=== PATIENT | female | born 2005 | race Caucasian/White ===

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

== ENCOUNTER 2024-05-20 16:53 | Emergency (ER) | payer OTHER, SELFPAY ==
--- NOTE | 2024-05-20 17:45 | ED_ITS ---
Discharge Plan Disposition Patient Disposition: Home, Self-Care Condition: Good Prescriptions Prescriptions: New azithromycin [Zithromax] 250 mg tablet 250 mg PO UD DOSE PK Qty: 6 0RF Rx Instructions: Take two (2) tablets today, then one (1) tablet days #2 thru #5 methylprednisolone 4 mg Tablets,Dose Pack 4 mg PO DIRECTED 6 Days Qty: 21 0RF Rx Instructions: Take 1 pack as directed for 6 days xndgedrynipsdcm-bqqpjcosb-VN [Bromfed DM] 2-30-10 mg/5 mL Syrup 5 ml PO Q6H PRN (Reason: Cough) Qty: 240 0RF No Action levonorgestrel-ethinyl estrad [Aviane] 0.1-20 mg-mcg tablet 1 tab PO DAILY Qty: 84 4RF nitrofurantoin monohyd/m-cryst [Macrobid] 100 mg capsule 100 mg PO BID 7 Days Qty: 14 0RF Rx Instructions: must administer with a meal/food Referrals Follow up/Referrals: Provider,Referral, MD [Primary Care Provider] - See instructions Activity Restrictions/Add. Instructions Additional Instructions/Restrictions: Drink plenty of fluids. Take tylenol or ibuprofen for pain or fever. Take the medications as directed. Follow up with your regular doctor. GO TO THE ER FOR ANY WORSENING SYMPTOMS Clinical Impressions Clinical Impression: Bronchitis Instructions Patient Instructions: DI for Acute Bronchitis Print Language Print Language: [place]ize[place] Discharge ED Provider: Bo Tejada [facility] [place] HPI General Stated complaint: cough Time Seen by Provider: 05/20/24 17:45 Related Data Previous Rx's ?Medication ?Instructions ?Recorded levonorgestrel-ethinyl estradiol 1 tab PO DAILY #84 tabs 01/03/24 0.1 mg-20 mcg tablet (Aviane) azithromycin 250 mg tablet 250 mg PO UD DOSE PK #6 tabs 05/20/24 (Zithromax) bcloallevxtakrx-oxuopiiptnajgwt-KL 5 ml PO Q6H PRN Cough #240 mL 05/20/24 2 mg-30 mg-10 mg/5 mL oral syrup (Bromfed DM) methylprednisolone 4 mg tablets in 4 mg PO DIRECTED 6 days #21 tabs 05/20/24 a dose pack nitrofurantoin 100 mg PO BID 7 days #14 caps 12/31/24 monohydrate/macrocrystals 100 mg capsule (Macrobid) Allergies Allergy/AdvReac Type Severity Reaction Status Date / Time No Known Allergies Allergy Verified 05/01/24 09:59 [facility] Disclaimer: The information contained in this section may have been updated after the patient was seen, as this information can be updated by other users. Medical History Discomfort of vagina BV (bacterial vaginosis) hx of recurrent infections Abnormal ECG Dizziness Rivers disease Anemia due to acute blood loss Surgical History No significant past surgical history Family History Other No significant family history Social History Smoking Status: Current some day smoker alcohol intake: never substance use type: former substance user and marijuana current occupational status: student Travel in the last 8 weeks: None Have you lived/traveled outside [place] in past 30 days?: No Contact w/someone who lives/traveled outside [place] past 30 days?: No Exposure to someone with infectious disease in past 14 days?: No Do you have a fever (greater than 100.4 F or 38 C)?: No Have you tested positive for COVID-19: No Exposed to someone with COVID-19 in past 14 days?: No Do you have a sore throat?: No Do you have a cough?: Yes Do you have any weakness?: No Do you have any diarrhea?: No Are you experiencing any unusual bleeding?: No Do you have any muscle aches/pain?: No Do you have any abdominal pain?: No Are you experiencing loss of taste or smell?: No ROS Obtained: Yes All systems reviewed & no additional complaints except as documented Constitutional Constitutional: Reports chills and Reports fever(s) Eyes Eyes: Denies eye discharge ENT Ears, Nose, Mouth, and Throat: Reports as per HPI Cardiovascular Cardiovascular: Denies chest pain Respiratory Respiratory: Denies chest congestion and Reports cough Gastrointestinal Gastrointestingal: Reports nausea; Denies abdominal pain, constipation, cramping, diarrhea or vomiting Musculoskeletal Musculoskeletal: Denies arthralgias Integumentary/Breasts Skin/Breast: Denies rash Neurologic Neurologic: Denies paresthesias Physical Exam General General appearance: alert and in no apparent distress Eye Eye exam: Present normal appearance, PERRL and EOMI ENT ENT exam: Present mucous membranes moist and normal external ear exam Expanded ENT Exam External ear exam: Present normal external inspection TM/Canal exam: Bilateral TM: erythema and bulging Nose exam: Absent sinus tenderness Nasal speculum exam: Bilateral: normal Mouth exam: Present normal external inspection; Absent drooling Teeth exam: Present normal inspection Throat exam: Present tonsillar erythema and tonsillomegaly Neck Neck exam: Present normal inspection, full ROM and trachea midline; Absent tenderness, lymphadenopathy or thyromegaly Chest Chest inspection: Present normal inspection and symmetric chest wall rise; Ab sent tenderness or rash Respiratory Respiratory exam: Present normal lung sounds bilaterally; Absent respiratory distress, wheezes, stridor or accessory muscle use Cardiovascular Cardiovascular exam: Present regular rate, normal rhythm and normal heart sounds Abdominal Exam Abdominal exam: Present soft; Absent distention, tenderness, guarding, rebound or rigidity Extremities Exam Extremities exam: Present normal inspection, full ROM and normal capillary refill; Absent tenderness or calf tenderness Back Exam Back exam: Present normal inspection and full ROM; Absent tenderness Neurological Exam Neurological exam: Present alert and oriented X3 Psychiatric Psychiatric exam: Present normal affect and normal mood Skin Skin exam: Present warm, dry, intact and normal color Lymphatic Lymphatic Findings: no adenopathy Medical Decision Making Medical Records Medical records reviewed: No I reviewed the patient's medical records. Screening: Per USPSTF and CDC recommendations, given the prevalence of disease in our region, it is our hospital?s policy to screen for HIV and viral Hepatitis for all patients aged 18 and over and those with ongoing risk factors. Rm Inquiry Pt receiving controlled substance: No
[2024-05-20 17:46] VITALS: BP 115/63; PULSE 71; RESP 18; TEMP 37.1; O2SAT 98; BMI 21.7
[2024-05-20 19:00] VITALS: BP 115/63; PULSE 71; RESP 18; TEMP 37.1
== END 2024-05-20 19:06 | disposition home or self-care (01) ==
PROVIDERS: Emergency Provider Nurse Practitioner Family
DX: J40 Bronchitis, not specified as acute or chronic (principal); R50.9 Fever, unspecified; R05.9 Cough, unspecified; R11.0 Nausea
CPT/HCPCS: 99212; G0381

== ENCOUNTER 2024-07-27 09:18 | Outpatient (CLI) | payer OTHER, SELFPAY ==
--- NOTE | 2024-07-27 09:21 | MR_ITS ---
FINAL REPORT TECHNIQUE: Multiplanar MR, without and with gadolinium enhancement CLINICAL HISTORY: DIZZINESS, HEADACHES FINDINGS: Dental hardware causes significant magnetic susceptibility hardware artifact obscuring the inferior frontal lobes. Diffusion sequences show no signal abnormality to indicate acute infarct. No mass, hemorrhage or edema is seen. Ventricles are normal. Major vascular flow voids are intact. Following contrast administration, no mass or abnormal enhancement is seen. IMPRESSION: Unremarkable MR evaluation the brain with contrast Reviewed, Interpreted and Dictated by Jose Leiva MD Transcribed by Yina De Dios Authenticated and [facility]
[2024-07-27] MEDS: SODIUM CHLORIDE 0.9% 10ML SYR (RAD ONLY) 10 ML IV (09:53)
[2024-07-27] MEDS: GADOTERIDOL INJ 20ML SYRINGE 12 ML IV (09:53)
== END 2024-07-27 23:59 | disposition home or self-care (01) ==
LOC: RAD 09:19
PROVIDERS: Visit Provider Nurse Practitioner Family
DX: R42 Dizziness and giddiness (principal); R51.9 Headache, unspecified
CPT/HCPCS: 70553; A9576

== ENCOUNTER 2024-08-09 08:40 | Outpatient (CLI) | payer OTHER, SELFPAY ==
[2024-08-09 08:56] VITALS: BP 115/68; PULSE 78; RESP 18; TEMP 37.5; O2SAT 99
[2024-08-09] MEDS: CEFTRIAXONE SODIUM IV (08:57)
[2024-08-09] MEDS: SODIUM CHLORIDE 0.9% IV (08:57)
[2024-08-09] MEDS: 0.9 % SODIUM CHLORIDE 50 ML 100 ML IV (08:57)
[2024-08-09 09:24] LABS: Basophils # 0.1 K/mm3 (0-0.2); Basophils % 0.7 % (0.1-2.0); Eosinophils # 0.2 K/mm3 (0.0-0.4); Eosinophils % 3.2 % (0.1-12.0); Hematocrit 36.8 % (37.0-47.0); Hemoglobin 12.2 g/dL (12.2-16.2); Lymphocytes # 2.1 K/mm3 (0.7-4.5); Lymphocytes % 29.2 % (10-50); Mean Corpuscular HGB Conc 33.2 g/dL (31.8-35.4); Mean Corpuscular Hemoglobin 29.3 pg (27.0-31.2); Mean Corpuscular Volume 88.5 fl (81-99); Mean Platelet Volume 11.3 fl (7.4-10.4); Monocytes # 0.4 K/mm3 (0.1-1.0); Monocytes % 5.3 % (1.7-9.3); Neutrophils # 4.4 K/mm3 (1.8-7.8); Neutrophils % 61.2 % (37.0-80.0); Platelet Count 306 K/mm3 (142-424); Red Blood Count 4.16 M/mm3 (4.20-5.40); Red Cell Distribution Width 13.2 % (11.5-17.5); White Blood Count 7.1 K/mm3 (4.5-13.0)
[2024-08-09 09:40] VITALS: BP 117/65; PULSE 71; RESP 18; TEMP 37.2; O2SAT 100
[2024-08-09 10:01] LABS: Thyroid Stimulating Hormone 3.53 uIU/mL (0.465-4.68)
[2024-08-09 10:14] LABS: Free T4 (Free Thyroxine) 1.12 ng/dl (0.78-2.19)
== END 2024-08-09 09:40 | disposition home or self-care (01) ==
LOC: INF 08:41
PROVIDERS: Nurse Practitioner; PCP Nurse Practitioner Family; Visit Provider Obstetrics & Gynecology
DX: Z20.2 Contact with and (suspected) exposure to infections with a predominantly sexual mode of transmission (principal); I95.9 Hypotension, unspecified; R42 Dizziness and giddiness
CPT/HCPCS: 84439; 84443; 85025; 96365; J0696

== ENCOUNTER 2024-10-19 13:41 | Outpatient (CLI) | payer OTHER, SELFPAY ==
--- NOTE | 2024-10-19 13:45 | US_ITS ---
PROCEDURE: US TRANSVAGINAL CLINICAL INDICATION: LLQ pain COMPARISON: US US TRANSVAGINAL from 03/30/2022 US US TRANSVAGINAL from 05/05/2023 US US TRANSVAGINAL from 06/29/2023 FINDINGS: Transvaginal sonographic images of the pelvis were obtained. UTERUS: 8.4cm x 5.5cmx 3.5 cm anteverted with a combined endometrial thickness of 4.1mm. An IUD is no longer present within the uterine cavity. LEFT OVARY: 2.9 [id number] with a volume of 6ml. There are several small peripheral follicles. RIGHT OVARY: 2.6 cm x 1.8 cmx1.3cm with a volume of 3.1ml. There are several small peripheral follicles Both ovaries are seen and appear normal. Doppler flow to both ovaries are seen. There is no fluid in the cul-de-sac. IMPRESSION: 1. Anteverted uterus normal in shape and size. The endometrium is thin measuring 4.1 mm. An IUD is no longer seen within the uterine cavity. 2. Both ovaries are seen and appear normal. They both have several small peripheral follicles. 3. No fluid in the cul-de-sac. Dictated by: Margarito Jones MD 10/20/2024 09:04 Margarito Jones MD in OV 10/20/2024 09:04
== END 2024-10-19 23:59 | disposition home or self-care (01) ==
LOC: RAD 13:41
PROVIDERS: PCP Nurse Practitioner Family; Visit Provider Obstetrics & Gynecology
DX: N83.02 Follicular cyst of left ovary (principal); N83.01 Follicular cyst of right ovary
CPT/HCPCS: 76830

== ENCOUNTER 2024-12-05 16:43 | Outpatient (CLI) | payer OTHER, SELFPAY ==
[2024-12-07 03:43] LABS: Neisseria gonorrhoeae, NAA Negative (Negative)
== END 2024-12-05 23:59 | disposition home or self-care (01) ==
LOC: LAB.DROPOF 16:43
PROVIDERS: PCP Obstetrics & Gynecology; Visit Provider Obstetrics & Gynecology
DX: Z11.3 Encounter for screening for infections with a predominantly sexual mode of transmission (principal)
CPT/HCPCS: 87491; 87591; 87798; 87801

== ENCOUNTER 2025-01-11 08:42 | Emergency (ER) | payer OTHER, SELFPAY ==
[2025-01-11 08:44] VITALS: BP 118/75; PULSE 97; RESP 16; TEMP 36.9; O2SAT 98; BMI 22.8
[2025-01-11 09:00] VITALS: BP 118/75; PULSE 95; O2SAT 98
[2025-01-11 09:30] VITALS: BP 101/70; PULSE 87; O2SAT 100
--- NOTE | 2025-01-11 09:56 | ED_ITS ---
Discharge Plan Disposition Patient Disposition: Home, Self-Care Prescriptions Prescriptions: No Action cyanocobalamin (vitamin B-12) 1,000 mcg/mL solution IM WEEKLY Patient Comments: INJECT 1 ML INTRAMUSCULARLY ONCE A WEEK FOR 30 DAYS doxycycline hyclate 100 mg tablet 100 mg PO BID 7 Days Qty: 14 0RF drospirenone-ethinyl estradiol [Loryna (28)] 3-0.02 mg tablet See Rx Instructions .ROUTE .COMPLEX Qty: 84 3RF Dose Instruction: Take 1 tablet by mouth once daily Rx Instructions: Take 1 tablet by mouth once daily Referrals Follow up/Referrals: Blanca Boyer APRN [Primary Care Provider, Medical] - See instructions Clinical Impressions Clinical Impression: Paronychia Stand Alone Forms Stand Alone Forms: Work/School Release Instructions Patient Instructions: DI for Paronychia Print Language Print Language: Welsh Discharge ED Provider: Beto Cardoso General Adult HPI General Chief complaint: Skin/Abscess/Foreign Body Stated complaint: Infection middle finger left hand, fever Time Seen by Provider: 01/11/25 09:23 Mode of Arrival: Family Vehicle Source of Information: Patient Description of Symptoms (Recalled from ER Triage Doc. by RN): Pt c/o infection to her nailbed on middle finger of left hand. States she was at pcp office yeaterday and give and antibiotic and told to use epsom salt. She said she is taking Ibuprofen every 4 hr but it has not helped well. States she has been f eeling feverish and pcp told her to come to the ER for eval. History of Present Illness HPI narrative: This patient presents to the emergency department with 1 week of swelling and pain of the middle finger of the right hand. She initially cut her finger 2 weeks ago while reaching behind a car seat, yesterday she presented to an urgent care and was prescribed Keflex 3 times daily for 7 days. She is taking this medication as prescribed however symptoms are improving. She has a visible purulent fluid collection behind the nail. She has no other complaints at this time, no systemic symptoms including no fever, no chills, no night sweats. Related Data Home Medications ?Medication ?Instructions ?Recorded ?Confirmed cyanocobalamin (vitamin B-12) mcg IM WEEKLY 12/05/24 0 12/05/24 1,000 mcg/mL injection solution Previous Rx's ?Medication ?Instructions ?Recorded drospirenone 3 mg-ethinyl See Rx Instructions .Route 0 11/15/24 estradiol 0.02 mg tablet (Loryna .COMPLEX #84 tabs (28)) doxycycline hyclate 100 mg tablet 100 mg PO BID 7 days #14 tabs 12/05/24 Allergies Allergy/AdvReac Type Severity Reaction Status Date / Time No Known Allergies Allergy Verified 12/05/24 13:37 [facility] Disclaimer: The information contained in this section may have been updated after the patient was seen, as this information can be updated by other users. Medical History LLQ pain Vaginal discharge Possible exposure to STD Abnormal uterine bleeding Discomfort of vagina BV (bacterial vaginosis) hx of recurrent infections Abnormal ECG Dizziness Rivers disease Anemia due to acute blood loss Surgical History No significant past surgical history Family History Other No significant family history Social History Smoking Status: Current every day smoker alcohol intake: never substance use type: former substance user and marijuana current occupational status: student Travel in the last 8 weeks?: None Have you lived/traveled outside [place] in past 30 days?: No Contact w/someone who lives/traveled outside [place] past 30 days?: No Exposure to someone with infectious disease in past 14 days?: No Do you have a fever (greater than 100.4 F or 38 C)?: No Have you tested positive for COVID-19?: No Exposed to someone with COVID-19 in past 14 days?: No Do you have a sore throat?: No Do you have a cough?: No Do you have any weakness?: No Do you have any diarrhea?: No Are you experiencing any unusual bleeding?: No Do you have any muscle aches/pain?: No Do you have any abdominal pain?: No Are you experiencing loss of taste or smell?: No Other Medical History Have you received the Flu Vaccine for this season: No Have you received the Pneumonia Vaccine: No ROS Obtained: Yes All systems reviewed & no additional complaints except as documented Physical Exam General General appearance: alert and in no apparent distress Head Head exam: atraumatic and normocephalic Eye Eye exam: Present normal appearance and PERRL ENT ENT exam: Present normal exam Neck Neck exam: Present normal inspection Chest Chest inspection: Present normal inspection Respiratory Respiratory exam: Absent respiratory distress Cardiovascular Cardiovascular exam: Present regular rate and normal rhythm Extremities Exam Extremities exam: Present normal inspection Neurological Exam Neurological exam: Present alert and oriented X3 Psychiatric Psychiatric exam: Present normal affect Skin Skin exam: Present warm and dry Medical Decision Making Medical Records Screening: Per USPSTF and CDC recommendations, given the prevalence of disease in our region, it is our hospital?s policy to screen for HIV and viral Hepatitis for all patients aged 18 and over and those with ongoing risk factors. Rm Inquiry Pt receiving controlled substance: No Rm was queried for this patient: No Vital Signs: 01/11/25 08:44 01/11/25 09:00 01/11/25 09:30 Temperature 98.4 F Temperature Source Oral Pulse Rate 95 H 87 Pulse Rate [Right] 97 H Respiratory Rate 16 Blood Pressure 118/75 101/70 L Blood Pressure [Right Arm] 118/75 Blood Pressure Mean [Right Arm] 89 Blood Pressure Source Blood Pressure Source [Right Arm] Automatic Cuff 02 Sat by Pulse Oximetry 98 98 100 Oxygen Delivery Method Room Air 01/11/25 10:06 Temperature 98.4 F Temperature Source Oral Pulse Rate 85 Pulse Rate [Right] Respiratory Rate 20 Blood Pressure 108/78 L Blood Pressure [Right Arm] Blood Pressure Mean [Right Arm] Blood Pressure Source Automatic Cuff Blood Pressure Source [Right Arm] 02 Sat by Pulse Oximetry Oxygen Delivery Method Room Air Medical Decision Narrative: This patient presents to the emergency department with soft tissue pain and swelling of the finger. Differential diagnosis includes felon, paronychia, pulpitis, cellulitis. After careful physical exam I think is most likely the patient is suffering from paronychia. A single bur hole was created via cautery producing immediate relief in the patient's discomfort. The patient reported that she was on day 2 of a 7-day antibiotic course, felt this would be adequate to cover any worsening cellulitis. I provided the patient with careful return precautions and discharged her to home with plans to follow-up with her primary care provider. Critical Care Critical Care Time Critical Care Time: No
[2025-01-11 10:06] VITALS: BP 108/78; PULSE 85; RESP 20; TEMP 36.9; O2SAT 97
== END 2025-01-11 10:16 | disposition home or self-care (01) ==
PROVIDERS: Emergency Provider Student in an Organized Health Care Education/Training Program; PCP Nurse Practitioner Family
DX: L03.012 Cellulitis of left finger (principal)
CPT/HCPCS: 99283

== ENCOUNTER 2025-01-15 13:16 | Outpatient (CLI) | payer OTHER, SELFPAY | END 2025-01-15 23:59 | disposition home or self-care (01) | LOC: LAB.DROPOF 01-16 13:28 | PROVIDERS: PCP Nurse Practitioner; Visit Provider Nurse Practitioner | DX: R35.0 Frequency of micturition (principal) | CPT/HCPCS: 87086 ==

== ENCOUNTER 2025-03-28 10:04 | Outpatient (CLI) | payer OTHER, SELFPAY | END 2025-03-28 23:59 | LOC: LAB.DROPOF 04-01 10:04 | PROVIDERS: PCP Internal Medicine Adolescent Medicine; Visit Provider Student in an Organized Health Care Education/Training Program | DX: N39.0 Urinary tract infection, site not specified (principal) | CPT/HCPCS: 87086; 87088; 87186 ==

== ENCOUNTER 2025-04-05 10:31 | Outpatient (CLI) | payer OTHER, SELFPAY ==
--- NOTE | 2025-04-05 10:15 | US_ITS ---
PROCEDURE: US TRANSVAGINAL CLINICAL INDICATION: rule out retained products COMPARISON: US US TRANSVAGINAL from 10/19/2024 FINDINGS: Transvaginal sonographic images of the pelvis were obtained. UTERUS: 8.9cm x 5cmx 4cm anteverted with a combined endometrial thickness of 5.6mm. There appears to be enhanced myometrial vascularity post miscarriage. There does not appear to be retained products of conception. LEFT OVARY: 2.6 cmx 1.6 cmx1.7cm with a volume of 3.7ml. RIGHT OVARY: 2.9 cmx 2.6 cmx2.0cm with a volume of 7.9ml. There are several small follicles within the right ovary. Both ovaries are seen and appear normal. Doppler flow to both ovaries are seen. There is a small amount of fluid in the cul-de-sac. IMPRESSION: 1. Anteverted uterus normal in shape and size. The endometrium is thin measuring 5.6 mm. 2. There appears to be enhanced myometrial vascularity within the posterior myometrium. This could be mistaken for an AVM and most commonly occurs post miscarriage/. 3. Both ovaries are seen and appear normal. 4. There is a small amount of fluid within the cul-de-sac. Dictated by: Margarito Jones MD 04/05/2025 13:01 Margarito Jones MD in [place] 04/05/2025 13:01
== END 2025-04-05 23:59 | disposition home or self-care (01) ==
LOC: RAD 10:32
PROVIDERS: PCP Internal Medicine Adolescent Medicine; Visit Provider Nurse Practitioner Obstetrics & Gynecology
DX: N85.4 Malposition of uterus (principal); R93.89 Abnormal findings on diagnostic imaging of other specified body structures; N93.9 Abnormal uterine and vaginal bleeding, unspecified; N94.89 Other specified conditions associated with female genital organs and menstrual cycle
CPT/HCPCS: 76830

== ENCOUNTER 2025-04-17 14:37 | Outpatient (CLI) | payer OTHER, SELFPAY ==
--- NOTE | 2025-04-17 15:00 | US_ITS ---
PROCEDURE: US TRANSVAGINAL CLINICAL INDICATION: increased vascularity in uterine muscles COMPARISON: US US TRANSVAGINAL from 04/05/2025 FINDINGS: Transvaginal sonographic images of the pelvis were obtained. UTERUS: 9.1cm x 3.4cm with a combined endometrial thickness of 7mm. There continues to be increased vascularity, likely enhanced myometrial vascularity in the posterior myometrium inferior to the endometrium. This is best seen on the transverse view near the fundus. The maximum systolic velocity is 24.8 centimeters/second. LEFT OVARY: 2.7 cmx1.4cmx1.6cm with a volume of 3.2ml. There are several small follicles. RIGHT OVARY: 3.0cmx 1.9x2.3cm with a volume of 7ml. Both ovaries are seen and appear normal. Doppler flow to both ovaries are seen. There is no fluid in the cul-de-sac. IMPRESSION: 1. Anteverted, slightly enlarged uterus. The endometrium is thin measuring 7 mm. 2. There continues to be an area of enhanced myometrial vascularity inferior to the endometrium. The maximum systolic velocity is 24.4 cm/second. This is best seen on the transverse view. See images 13-19. 3. Both ovaries are seen and appear normal. 4. No fluid in the cul-de-sac. 5. Patient has stated that she is no longer bleeding vaginally. 6. Continue with biweekly transvaginal ultrasounds until complete resolution of this EMV. Dictated by: Margarito Jones MD 04/17/2025 16:47 Margarito Jones MD in [place] 04/17/2025 16:47
== END 2025-04-17 23:59 | disposition home or self-care (01) ==
LOC: RAD 14:38
PROVIDERS: PCP Internal Medicine Adolescent Medicine; Visit Provider Nurse Practitioner Obstetrics & Gynecology
DX: N85.4 Malposition of uterus (principal); N85.2 Hypertrophy of uterus; N93.9 Abnormal uterine and vaginal bleeding, unspecified; R10.32 Left lower quadrant pain; R09.89 Other specified symptoms and signs involving the circulatory and respiratory systems
CPT/HCPCS: 36415; 76830; 84702

== ENCOUNTER 2025-05-06 11:01 | Outpatient (CLI) | payer OTHER, SELFPAY ==
--- NOTE | 2025-05-06 11:00 | US_ITS ---
PROCEDURE: US TRANSVAGINAL CLINICAL INDICATION: myometrial vascularity COMPARISON: US US TRANSVAGINAL from 10/19/2024 US US TRANSVAGINAL from 04/05/2025 US US TRANSVAGINAL from 04/17/2025 FINDINGS: Transvaginal sonographic images of the pelvis were obtained. UTERUS: 8.6 cm x 5.5 cmx 3.3cm anteverted with a combined endometrial thickness of 6.6 mm. There continues to be posterior enhanced myometrial vascularity with turbulent flow. The peak velocity is 20.9-24.6 Cm/second. LEFT OVARY: 2.7 cmx1.6x1.5cm with a volume of 3.3ml. There are several small follicles. RIGHT OVARY: 3.5x 1.9 cmx1.2cm with a volume of 4ml. There are several small peripheral follicles. Both ovaries are seen and appear normal. Doppler flow to both ovaries are seen. There is no fluid in the cul-de-sac. IMPRESSION: 1. Anteverted uterus normal in shape and size. The endometrium measures 6.6 mm. 2. There continues to be enhanced myometrial vascularity in the inferior aspect of the myometrium. Similar in appearance to her last ultrasound. 3. Both ovaries are seen and appear normal. They each have several small follicles. 4. No fluid in the cul-de-sac. 5. Continue with biweekly ultrasound to see the resolution of the enhancement meet really vascularity. Dictated by: Margarito Jones MD 05/06/2025 16:51 Margarito Jones MD in [place] 05/06/2025 16:51
== END 2025-05-06 23:59 | disposition home or self-care (01) ==
LOC: RAD 11:02
PROVIDERS: PCP Internal Medicine Adolescent Medicine; Visit Provider Nurse Practitioner Obstetrics & Gynecology
DX: N85.4 Malposition of uterus (principal); N83.02 Follicular cyst of left ovary; N83.01 Follicular cyst of right ovary; R93.89 Abnormal findings on diagnostic imaging of other specified body structures; R09.89 Other specified symptoms and signs involving the circulatory and respiratory systems
CPT/HCPCS: 76830

== ENCOUNTER 2025-05-20 11:03 | Outpatient (CLI) | payer OTHER, SELFPAY ==
--- OUTSIDE RECORDS SUMMARY | 2025-05-10 09:15 | XMS_ITS | Encounter Summary ---
Author Organization Healthcare Address [address] [place] [address] Care Team Providers Care Network Program Manager Name Role Phone Beltran Payton MD Primary Care Provider [phone] Reason for Visit * Reason Comments Office Visit Encounter Details Date Type Department Care Team ([facility] Contact Info) Description 05/10/2025 9:15 AM EST Office Visit Medical Office Building Obstetrics and Gynecology [address] [facility] [address] [facility] [address], [address] [place] [address] Ev Lugo MD [address] [facility] [place] [address] AVM (arteriovenous malformation) (Primary Dx); Healthcare maintenance Social History Tobacco Use Types Packs/Day Years Used Date Smoking Tobacco: Never Passive Smoke Exposure: Never Smokeless Tobacco: Current Tobacco Cessation:Ready to Q uit: No; Counseling Given: No Alcohol Use Standard Drinks/Week Comments Never 0 (1 standard drink = 0.6 oz pur e alcohol) PHQ-2 Answer Date Recorded Patient Health Questionnaire-2 Score 0 05/10/2025 PHQ-9 Answer Date Recorded Patient Health Questionnaire-9 Score 7 05/10/2025 Comments No Sex and Gender Information Value Date Recorded Sex Assigned at Not on file Legal Sex Female 10:57 AM EST Gender Identity Not on file Sexual Orientation Not on file documented as of this encounter Last Filed Vital Signs Vital Sign Reading Time Taken Comments Blood Pressure 118/78 05/10/2025 9:29 AM EST Pulse 74 05/10/2025 9:29 AM EST Temperature - - Respiratory Rate 20 05/10/2025 9:29 AM EST Oxygen Saturation 98% 05/10/2025 9:29 AM EST Inhaled Oxygen Concentration - - Weight 64.8 kg (142 lb 13.7 oz) 05/10/2025 9:29 AM EST Height 167.6 cm (5' 6 ) 05/10/2025 9:29 AM EST Body Mass Index 23.06 05/10/2025 9:29 AM EST documented in this encounter Functional Status * BP Answer Date of Assessment Author 118/78 05/10/2025 9:29 AM EST Faustina Dominguez, RN * Pulse Answer Date of Assessment Author 74 05/10/2025 9:29 AM EST Faustina Dominguez, RN * Resp Answer Date of Assessment Author 20 05/10/2025 9:29 AM Faustina White, RN * SpO2 Answer Date of Assessment Author 98 05/10/2025 9:29 AM EST Faustina Dominguez, RN * Height Answer Date of Assessment Author 66 05/10/2025 9:29 AM EST Faustina Dominguez, RN * Weight Answer Date of Assessment Author 2285.73 05/10/2025 9:29 AM EST Faustina Dominguez, RN * BMI (Calculated) Answer Date of Assessment Author 23.1 05/10/2025 9:29 AM EST Faustina Dominguez, RN * Percent Excess Weight Loss Answer Date of Assessment Author 0 05/10/2025 9:29 AM Faustina White, RN * Total Weight Change Percent Answer Date of Assessment Author 2222 05/10/2025 9:29 AM Faustina White, RN * Weight Change Since Preop Answer Date of Assessment Author 64.79 05/10/2025 9:29 AM Faustina White, RN * Initial Excess Weight Answer Date of Assessment Author -58.97 05/10/2025 9:29 AM Faustina White, RN * IBW in lbs (Bariatric) Answer Date of Assessment Author 130 05/10/2025 9:29 AM Faustina White, RN * Weight Change Since Last Visit Answer Date of Assessment Author 64.79 05/10/2025 9:29 AM Faustina White, RN * IBW in kg (Bariatric) Answer Date of Assessment Author 58.97 05/10/2025 9:29 AM Faustina White, RN * Percent of IBW Answer Date of Assessment Author 3,876.09 05/10/2025 9:29 AM Faustina White, RN * EBW (kg) Answer Date of Assessment Author 2,284.06 05/10/2025 9:29 AM Faustina White, RN * EBW (lbs) Answer Date of Assessment Author 2,277.61 05/10/2025 9:29 AM Faustina White, RN * Weight Change 24 hrs Answer Date of Assessment Author 64.8 05/10/2025 9:29 AM Faustina White, RN * Depression Screening Question Answer Date of Assessment Author Will the patient answer the depression risk questions? Yes 05/10/2025 9:32 AM Lea White, RN * BSA (Calculated - sq m) Answer Date of Assessment Author 1.74 05/10/2025 9:29 AM Faustina White, RN * BMI (Calculated) Answer Date of Assessment Author 23.07 05/10/2025 9:29 AM Faustina White, RN * BP Location Answer Date of Assessment Author Left arm 05/10/2025 9:29 AM Faustina White, RN * IBW/kg (Calculated) Male Answer Date of Assessment Author 63.8 05/10/2025 9:29 AM Faustina White, RN * IBW/kg (Calculated) Female Answer Date of Assessment Author 59.3 05/10/2025 9:29 AM Faustina White, RN * Restart Vitals Timer Answer Date of Assessment Author Yes 05/10/2025 9:29 AM Faustina White, RN * IBW/kg (Calculated) Answer Date of Assessment Author 59.3 05/10/2025 9:29 AM Faustina White, RN * Over the past 2 weeks, how often have you been bothered by any of the following problems? Question Answer Date of Assessment Author Little interest or pleasure in doing things Not at all 05/10/2025 9:32 AM Yvonne White, RN Feeling down, depressed, or hopeless Not at all 05/10/2025 9:32 AM Yvonne White RN Patient Health Questionnaire -2 Score 0 05/10/2025 9:32 AM Yvonne White RN * Over the past 2 weeks, how often have you been bothered by any of the following problems? Question Answer Date of Assessment Author Trouble falling or staying asleep, or sleeping too much Nearly every day 05/10/2025 9:32 AM Yvonne White RN Feeling tired or having little energy Nearly every day 05/10/2025 9:32 AM Yvonne White RN Poor appetite or overeating Not at all 05/10/2025 9:32 AM Yvonne White RN Feeling bad about yourself - or that you are a failure or have let yourself or your family down Not at all 05/10/2025 9:32 AM Yvonne White RN Trouble concentrating on things, such as reading the newspaper or watching television Several days 05/10/2025 9:32 AM Yvonne White RN Moving or speaking so slowly that other people could have noticed. Or the opposite - being so fidgety or restless that you have been moving around a lot more than usual Not at all 05/10/2025 9:32 AM Yvonne White RN Thoughts that you would be better off or hurting yourself in some way Not at all 05/10/2025 9:32 AM Yvonne White RN Patient Health Questionnaire-9 Score 7 05/10/2025 9:32 AM Yvonne White , BOZENA * How difficult have these problems made it for you to do your work, take care of things at home, or get along with other people? Answer Date of Assessment Author Not difficult at all 05/10/2025 9:32 AM Yvonne Guy RN * Weight in (lb) to have BMI = 25 Answer Date of Assessment Author 154.6 05/10/2025 9:29 AM Faustina White RN * BMI (Calculated) Answer Date of Assessment Author 23.1 05/10/2025 9:29 AM Faustina White RN * Percent Excess Weight Loss Answer Date of Assessment Author 0 05/10/2025 9:29 AM Faustina White, BOZENA * Weight Change Since Preop Answer Date of Assessment Author 64.8 05/10/2025 9:29 AM Faustina White, RN * Initial Excess Weight Answer Date of Assessment Author -58.97 05/10/2025 9:29 AM Faustina White, RN * IBW in kg (Bariatric) Answer Date of Assessment Author 58.97 05/10/2025 9:29 AM Faustina White, RN * IBW in lb (Bariatric) Answer Date of Assessment Author 130 05/10/2025 9:29 AM Faustina White, RN * Weight Change Since Last Visit Answer Date of Assessment Author 64.8 05/10/2025 9:29 AM Faustina White, RN * Percent of IBW Answer Date of Assessment Author 109.89 05/10/2025 9:29 AM Faustina White, RN * EBW (kg) Answer Date of Assessment Author 5.82 05/10/2025 9:29 AM Faustina White, RN * EBW (lb) Answer Date of Assessment Author 12.86 05/10/2025 9:29 AM Faustina White, RN * Difference in Weight Since Last Visit Answer Date of Assessment Author 64.8 05/10/2025 9:29 AM Faustina White, RN * IBW/kg (Calculated) Answer Date of Assessment Author 59.3 05/10/2025 9:29 AM Faustina White, RN * Adult Low Range Vt 6mL/kg Answer Date of Assessment Author 355.8 05/10/2025 9:29 AM Faustina White, RN * Adult Moderate Range Vt 8mL/kg Answer Date of Assessment Author 474.4 05/10/2025 9:29 AM Faustina White, RN * Adult High Range Vt 10mL/kg Answer Date of Assessment Author 593 05/10/2025 9:29 AM Faustina White, RN * Pain Score Answer Date of Assessment Author 0 05/10/2025 11:12 AM Yvonne White, BOZENA * Patient Position Answer Date of Assessment Author Sitting 05/10/2025 9:29 AM Faustina White, RN * Pain Screening/Additional Assessments Question Answer Date of Assessment Author Pain Screening/Assessments Pain Screening 05/10/2025 1 1:12 AM Yvonne White, BOZENA * Pain Screening Answer Date of Assessment Author 0-10 05/10/2025 11:12 AM Yvonne White RN * BP Answer Date of Assessment Author 118/78 05/10/2025 9:29 AM Faustina White, RN * Pulse Answer Date of Assessment Author 74 05/10/2025 9:29 AM Faustina White, RN * Resp Answer Date of Assessment Author 20 05/10/2025 9:29 AM Faustina White, RN * SpO2 Answer Date of Assessment Author 98 05/10/2025 9:29 AM Faustina White, RN * Height Answer Date of Assessment Author 66 05/10/2025 9:29 AM Faustina White, RN * Weight Answer Date of Assessment Author 2285.73 05/10/2025 9:29 AM Faustina White, RN * BSA (Calculated - sq m) Answer Date of Assessment Author 1.74 05/10/2025 9:29 AM Faustina White, RN * BMI (Calculated) Answer Date of Assessment Author 23.07 05/10/2025 9:29 AM Faustina White, RN * BP Location Answer Date of Assessment Author Left arm 05/10/2025 9:29 AM Faustina White, RN * Restart Vitals Timer Answer Date of Assessment Author Yes 05/10/2025 9:29 AM Faustina White, RN * Over the past 2 weeks, how often have you been bothered by any of the following problems? Question Answer Date of Assessment Author Little interest or pleasure in doing things Not at all 05/10/2025 9:32 AM Yvonne White RN Feeling down, depressed, or hopeless Not at all 05/10/2025 9:32 AM Yvonne White, BOZENA Patient Health Questionnaire -2 Score 0 05/10/2025 9:32 AM Yvonne White, RN * Over the past 2 weeks, how often have you been bothered by any of the following problems? Question Answer Date of Assessment Author Trouble falling or staying asleep, or sleeping too much Nearly every day 05/10/2025 9:32 AM Yvonne White RN Feeling tired or having little energy Nearly every day 05/10/2025 9:32 AM Yvonne White RN Poor appetite or overeating Not at all 05/10/2025 9:32 AM Yvonne White RN Feeling bad about yourself - or that you are a failure or have let yourself or your family down Not at all 05/10/2025 9:32 AM Yvonne White RN Trouble concentrating on things, such as reading the newspaper or watching television Several days 05/10/2025 9:32 AM Yvonne White RN Moving or speaking so slowly that other people could have noticed. Or the opposite - being so fidgety or restless that you have been moving around a lot more than usual Not at all 05/10/2025 9:32 AM Yvonne White RN Thoughts that you would be better off or hurting yourself in some way Not at all 05/10/2025 9:32 AM Yvonne White RN Patient Health Questionnaire-9 Score 7 05/10/2025 9:32 AM Yvonne White RN * How difficult have these problems made it for you to do your work, take care of things at home, or get along with other people? Answer Date of Assessment Author Not difficult at all 05/10/2025 9:32 AM Yvonne Guy RN * Weight in (lb) to have BMI = 25 Answer Date of Assessment Author 154.6 05/10/2025 9:29 AM Faustina White RN * Pain Score Answer Date of Assessment Author 0 05/10/2025 11:12 AM Yvonne White RN * Patient Position Answer Date of Assessment Author Sitting 05/10/2025 9:29 AM Faustina White RN * Learning Needs Screening Question Answer Date of Assessment Author Are there things (barriers) that make it harder for this patient to learn? No Barriers 05/10/2025 9:28 AM Yvonne White, RN What is the best language to use for teaching this patient about his/her health? Maori 05/10/2025 9:28 AM Yvonne White , RN What format does this patient think is most helpful for learning? Listening;Reading;Dem onstration;Pictures/V ideo 05/10/2025 9:28 AM Yvonne White, RN Primary Learner Patient 05/10/2025 9:28 AM Yvonne Orozco, RN * Readiness to Learn Question Answer Date of Assessment Author Readiness Acceptance 05/10/2025 9:28 AM Yvonne Arevalo, RN documented as of this encounter Mental Status * BP Answer Entry Date Author 118/78 05/10/2025 9:29 AM Faustina White, RN * Pulse Answer Entry Date Author 74 05/10/2025 9:29 AM Faustina White, RN * Resp Answer Entry Date Author 20 05/10/2025 9:29 AM Faustina White, RN * SpO2 Answer Entry Date Author 98 05/10/2025 9:29 AM Faustina White, RN * Height Answer Entry Date Author 66 05/10/2025 9:29 AM Faustina White, RN * Weight Answer Entry Date Author 2285.73 05/10/2025 9:29 AM Faustina White, RN * BMI (Calculated) Answer Entry Date Author 23.1 05/10/2025 9:29 AM Faustina White, RN * Percent Excess Weight Loss Answer Entry Date Author 0 05/10/2025 9:29 AM Faustina White, RN * Total Weight Change Percent Answer Entry Date Author 222105/10/2025 9:29 AM Faustina White, RN * Weight Change Since Preop Answer Entry Date Author 64.79 05/10/2025 9:29 AM Faustina White, RN * Initial Excess Weight Answer Entry Date Author -58.97 05/10/2025 9:29 AM Faustina White, RN * IBW in lbs (Bariatric) Answer Entry Date Author 130 05/10/2025 9:29 AM Faustina White, RN * Weight Change Since Last Visit Answer Entry Date Author 64.79 05/10/2025 9:29 AM Faustina White, RN * IBW in kg (Bariatric) Answer Entry Date Author 58.97 05/10/2025 9:29 AM Faustina White, RN * Percent of IBW Answer Entry Date Author 3,876.09 05/10/2025 9:29 AM Faustina White, RN * EBW (kg) Answer Entry Date Author 2,284.06 05/10/2025 9:29 AM Faustina White, RN * EBW (lbs) Answer Entry Date Author 2,277.61 05/10/2025 9:29 AM Faustina White, RN * Weight Change 24 hrs Answer Entry Date Author 64.8 05/10/2025 9:29 AM Faustina White, BOZENA * Depression Screening Question Answer Entry Date Author Will the patient answer the depression risk questions? Yes 05/10/2025 9:32 AM Lea White, RN * BSA (Calculated - sq m) Answer Entry Date Author 1.74 05/10/2025 9:29 AM Faustina White, RN * BMI (Calculated) Answer Entry Date Author 23.07 05/10/2025 9:29 AM Faustina White, RN * BP Location Answer Entry Date Author Left arm 05/10/2025 9:29 AM Faustina White, RN * IBW/kg (Calculated) Male Answer Entry Date Author 63.8 05/10/2025 9:29 AM Faustina White, RN * IBW/kg (Calculated) Female Answer Entry Date Author 59.3 05/10/2025 9:29 AM Faustina White, RN * Restart Vitals Timer Answer Entry Date Author Yes 05/10/2025 9:29 AM Faustina White, RN * IBW/kg (Calculated) Answer Entry Date Author 59.3 05/10/2025 9:29 AM Faustina White, RN * Over the past 2 weeks, how often have you been bothered by any of the following problems? Question Answer Entry Date Author Little interest or pleasure in doing things Not at all 05/10/2025 9:32 AM Yvonne hWite RN Feeling down, depressed, or hopeless Not at all 05/10/2025 9:32 AM Yvonne White RN Patient Health Questionnaire -2 Score 0 05/10/2025 9:32 AM Yvonne White, BOZENA * Over the past 2 weeks, how often have you been bothered by any of the following problems? Question Answer Entry Date Author Trouble falling or staying asleep, or sleeping too much Nearly every day 05/10/2025 9:32 AM Yvonne White, RN Feeling tired or having little energy Nearly every day 05/10/2025 9:32 AM Yvonne White RN Poor appetite or overeating Not at all 04/22 9:32 AM Yvonne White RN Feeling bad about yourself - or that you are a failure or have let yourself or your family down Not at all 05/10/2025 9:32 AM Yvonne White, RN Trouble concentrating on things, such as reading the newspaper or watching television Several days 05/10/2025 9:32 AM Yvonne White RN Moving or speaking so slowly that other people could have noticed. Or the opposite - being so fidgety or restless that you have been moving around a lot more than usual Not at all 05/10/2025 9:32 AM Yvonne White RN Thoughts that you would be better off or hurting yourself in some way Not at all 05/10/2025 9:32 AM Yvonne White RN Patient Health Questionnaire-9 Score 7 05/10/2025 9:32 AM Yvonne White RN * [facility] Concern Calculation Answer Entry Date Author 3 05/10/2025 9:32 AM Faustina White RN * How difficult have these problems made it for you to do your work, take care of things at home, or get along with other people? Answer Entry Date Author Not difficult at all 05/10/2025 9:32 AM Yvonne Guy, RN * Restart Pain Assessment Timer Answer Entry Date Author Yes 05/10/2025 11:12 AM Yvonne White, RN * Weight in (lb) to have BMI = 25 Answer Entry Date Author 154.6 05/10/2025 9:29 AM Faustina White, RN * BMI (Calculated) Answer Entry Date Author 23.1 05/10/2025 9:29 AM Faustina White, RN * Percent Excess Weight Loss Answer Entry Date Author 0 05/10/2025 9:29 AM Faustina White, RN * Weight Change Since Preop Answer Entry Date Author 64.8 05/10/2025 9:29 AM Faustina White, RN * Initial Excess Weight Answer Entry Date Author -58.97 05/10/2025 9:29 AM Faustina White, RN * IBW in kg (Bariatric) Answer Entry Date Author 58.97 05/10/2025 9:29 AM Faustina White, RN * IBW in lb (Bariatric) Answer Entry Date Author 130 05/10/2025 9:29 AM Faustina White, RN * Weight Change Since Last Visit Answer Entry Date Author 64.8 05/10/2025 9:29 AM Faustina White, RN * Percent of IBW Answer Entry Date Author 109.89 05/10/2025 9:29 AM Faustina White, RN * EBW (kg) Answer Entry Date Author 5.82 05/10/2025 9:29 AM Faustina White, RN * EBW (lb) Answer Entry Date Author 12.86 05/10/2025 9:29 AM Faustina White, RN * Difference in Weight Since Last Visit Answer Entry Date Author 64.8 05/10/2025 9:29 AM Faustina White, RN * IBW/kg (Calculated) Answer Entry Date Author 59.3 05/10/2025 9:29 AM Faustina White, RN * Adult Low Range Vt 6mL/kg Answer Entry Date Author 355.8 05/10/2025 9:29 AM Faustina White, RN * Adult Moderate Range Vt 8mL/kg Answer Entry Date Author 474.4 05/10/2025 9:29 AM Faustina White, RN * Adult High Range Vt 10mL/kg Answer Entry Date Author 593 05/10/2025 9:29 AM Faustina White RN * Pain Score Answer Entry Date Author 0 05/10/2025 11:12 AM Yvonne White RN * BP Cuff Size Answer Entry Date Author Adult 05/10/2025 9:29 AM Faustina White RN * Patient Position Answer Entry Date Author Sitting 05/10/2025 9:29 AM Faustina White RN * Pain Screening Answer Entry Date Author 0-10 05/10/2025 11:12 AM Yvonne White RN documented in this encounter Miscellaneous Notes * Progress Notes - Heather Howard MD - 05/10/2025 9:15 AM EST Gynecology History and Physical Patient Name: Henrietta Moreno : 2005 Date of Admission: 05/10/2025 Chief Concern: Chief Complaint Patient presents with Office Visit Subjective Subjective History of Present Illness: History of Present Illness The patient is a 19-year-old female who 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 She experienced a miscarriage on 02/25/2025, at 6 weeks and 1 day of gestation. She passed the miscarriage spontaneously and did not require a D&C or cytotec. She reports bleeding for approximately 6 weeks following the miscarriage. An ultrasound conducted in March at her OBGYNs revealed a vascular malformation of her uterus. Subsequent biweekly ultrasounds have shown no changes in the cond ition. She was advised against and was prescribed control pills, which she takes continuously, resulting in amenorrhea. She also takes spironolactone for acne. During her period of heavy bleeding, she had to change her pad every 2 hours, with the mornings being particularly challenging due to the volume of blood loss. 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 PAST MEDICAL HISTORY: The patient has a history of POTS and anemia. SOCIAL HISTORY The patient admits to using tobacco frequently, possibly multiple times an hour. She does not consume alcohol or use any other substances. MEDICATIONS CURRENT MEDS: Control Pill Oral Daily Spironolactone Oral Vitamins Oral Daily OBGYN History: OB History 2 Para 1 Term 1 AB 1 Living 1 SAB 1 IAB Ectopic Multiple Live Births 1 Prior x 1 Prior CS x 0 Menses onset 12 or 13, monthly LMP 01/07, SAB on 02/25 Past Medical History: Past Medical History[1] Past Surgical History: Surgical History[2] Family History: Family History[3] Social History: Social History[4] Medications: Current Outpatient Medications Medication Instructions spironolactone (ALDACTONE) 25 mg, Daily Allergies: Allergies[5] Review of Systems: Review of Systems All other systems reviewed and are negative. Objective Objective Vital Signs: Visit Vitals BP 118/78 (BP Location: Left arm, Patient Position: Sitting, BP Cuff Size: Adult) Pulse 74 Resp 20 Body mass index is 23.06 kg/m??. Weight: Wt Readings from Last 3 Encounters: 05/10/25 64.8 kg (142 lb 13.7 oz) Physical Exam Constitutional: Appearance: Normal appearance. HENT: Head: Normocephalic and atraumatic. Cardiovascular: Rate and Rhythm: Normal rate. Pulmonary: Effort: Pulmonary effort is normal. Abdominal: General: Abdomen is flat. There is no distension. Palpations: Abdomen is soft. Tenderness: There is no abdominal tenderness. Neurological: Mental Status: She is alert. Skin: General: Skin is warm and dry. Psychiatric: Mood and Affect: Mood normal. Results: No results found for: WBC , HGB , HCT , MCV , PLT , NEUTROABS , GLUCOSE , BUN , CREATININE , NA , K , CL , CO2 , MG , CALCIUM Imaging: Assessment/Plan Assessment / Plan Henrietta Moreno is a 19 y.o. with a possible AVM following recent miscarriage. Assessment & Plan 1. Uterine vascular malformation: Stable. Miscarriage on February 25, 2025, with heavy bleeding lasting approximately six weeks, bleeding now resolved. - Ultrasound in March 2025 revealed a vascular malformation. -Currently asymptomatic with no vaginal bleeding Plan: - Continue biweekly ultrasounds to monitor the condition. - Patient to have US faxed over, record release signed. -If patient were to become symptomatic with heavy bleeding or this were to persist for a long time,can consider IR intervention. RTC: As needed pending US results Verbal consent was obtained to use ambient listening technology to assist in the documentation of the encounter: yes [1] History reviewed. No pertinent past medical history. [2] History reviewed. No pertinent surgical history. [3] History reviewed. No pertinent family history. [4] Social History Socioeconomic History Marital status: Single Tobacco Use Smoking status: Never Passive exposure: Never Smokeless tobacco: Current Substance and Sexual Activity Alcohol use: Never Drug use: Never Sexual activity: Yes control/protection: [email or web address] Tobacco Use: High Risk (05/10/2025) Patient History Smoking Tobacco Use: Never Smokeless Tobacco Use: Current Passive Exposure: Never Depression: Not At Risk (05/10/2025) PHQ-2 PHQ-2 Score: 0 Recent Concern: Depression - Mild Depression (05/10/2025) PHQ-9 PHQ-9 Score: 7 [5] No Known Allergies Cosigned by Ev Lugo MD at 05/12/2025 11:16 AM EST Associated attestation - Ev Lugo MD - 05/12/2025 11:16 AM EST I saw and evaluated the patient with the resident/fellow. I discussed the case with the resident/fellow and agree with the findings and plan as documented. Reported uterine AVM after SAB in February being managed by Dr. Gongora. She presents for 2nd opinion.Asymptomatic without bleeding since miscarriage. UPT negative. If on my review of outside records from Dr. Gongora, I agree with his plan for expectant management with serial ultrasounds, she will continue to follow-up with him per her preference. Records requested. documented in this encounter Plan of Treatment Scheduled Orders Name Type Priority Associated Diagnoses Orde r Schedule US Pelvis Transvaginal Imaging Routine AVM (arteriovenous malformation) Expected: 05/10/2025 (Approximate), Expires: 11/11/2026 documented as of this encounter Procedures Procedure Name Priority Date/Time Associated Diagnosis Comments POCT , URINE Routine 05/10/2025 10:12 AM EST Healthcare maintenance documented in this encounter Results * POCT Urine (05/10/2025 10:12 AM EST) Urine - Point of Care Negative Negative - women after 7 weeks gestation and dilute urine (specific gravity <1.010) may have false negative results. Plasma HCG testing is recommended. Test performed at Point of Care. 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
--- NOTE | 2025-05-20 11:00 | US_ITS ---
PROCEDURE: US TRANSVAGINAL CLINICAL INDICATION: 2 week f/u COMPARISON: US US TRANSVAGINAL from 04/05/2025 US US TRANSVAGINAL from 04/17/2025 US US TRANSVAGINAL from 05/06/2025 FINDINGS: Transvaginal sonographic images of the pelvis were obtained. UTERUS: 8.4cm x 4.6 cmx 3.6 cm with a combined endometrial thickness of 4.6mm. There continues to be increased turbulent flow in the posterior myometrium The peak systolic velocity is 21.0 cm/second. LEFT OVARY: 2.6 cmx1.4cmx1.6cm with a volume of 3.1ml. RIGHT OVARY: 2.6 cmx 1.9 cmx1.7 cm with a volume of 4.5ml. Both ovaries are seen and appear normal. Doppler flow to both ovaries are seen. There is no fluid in the cul-de-sac. IMPRESSION: 1. Anteverted uterus normal in shape and size. The endometrium is thin measuring 4.6 mm. The patient says she has been bleeding for approximately [address] Boyce was notified of this. 2. There continues to be increased turbulent flow in the posterior myometrium consistent with enhanced myometrial varicosities. 3. Ovaries are seen and appear normal. 4. There is trace fluid in the cul-de-sac. 5. Continue with close follow-up. Dictated by: Margarito Jones MD 05/21/2025 10:16 Margarito Jones MD in OV 05/21/2025 10:16
--- OUTSIDE RECORDS SUMMARY | 2025-05-20 11:06 | XMS_ITS | Encounter Summary ---
Author Organization [facility] Address [address] [place] [address] Care Team Providers Care Food Court Team Member Name Role Phone Provider, No Known Primary Care Provider Unavail able Encounter Details Date Type Department Care Team (Latest Contact Info) Description 04/23/2025 Travel Social History Tobacco Use Types Packs/Day Years Used Date Smoking Tobacco: Never Assessed Comments Unknown Sex and Gender Information Value Date Recorded Sex Assigned at Not on file Legal Sex Female 11:47 AM EST Gender Identity Not on file Sexual Orientation Not on file documented as of this encounter Plan of Treatment Not on file documented as of this encounter Visit Diagnoses Not on filedocumented in this encounter Care Teams Food Court Team Member Relationship Specialty Start Date End Date Provider, No Known [facility] [address] PCP - General 04/23/25 documented as of this encounter
--- OUTSIDE RECORDS SUMMARY | 2025-05-20 11:06 | XMS_ITS | Clinical Summary ---
Author Organization Healthcare Address [address] [place] [address] Care Team Providers Care Nutrition Partner Name Role Phone Beltran Payton MD Primary Care Provider [phone] Allergies No known active allergies Medications spironolactone (Aldactone) 25 MG tablet Take 1 tablet by mouth daily. Active Encounters Date Type Department Care Team Description 05/13/2025 Telephone Medical Office Building Obstetrics and Gynecology [address] , [address] [place] [address] Ev Lugo MD 05/10/2025 9:15 AM EST Office Visit Medical Office Building Obstetrics and Gynecology [address], [address] [place] [address] Ev Lugo MD AVM (arteriovenous malformation) (Primary Dx); Healthcare maintenance 05/10/2025 Travel 04/26/2025 Telephone Medical Office Building Obstetrics and Gynecology [address], [address] [place] [address] Ivett Valerio, RN AUTO STRIPER: Care Coordination (Request for an Appointment - See Note) from Last 3 Months Social History Tobacco Use Types Packs/Day Years [...] on file Sexual Orientation Not on file Last Filed Vital Signs Vital Sign Reading [...] Mass Index 23.06 05/10/2025 9:29 AM EST Plan of Treatment Health Maintenance Due Date Last Done Comments [facility]-Chlamydia and Gonorrhea Screening 2004 [facility]-HIV Screening 2004 [facility]-Hepatitis C Screening 2004 [facility]-Infant/Child/Adol SDOH Screenings 2004 HPV Vaccines (1 - 3-dose series) 11/05/2019 [facility]- SDOH Screenings 2022 [facility]-Adult SDOH Screenings 2022 OUN-FPLMS-03 Vaccine ( - season) 2025 [facility]-Influenza Vaccine (#1) 2025 [facility]-Depression Screening 05/10/2026 05/10/2025, 04/22 [facility]-DTaP,Tdap,and Td Vaccines (7 - Td or Tdap) 12/22/2026 12/22/2016, 01/24/2009, 09/15/2006, Additional history exists [facility]-Zoster Vaccines (1 of 2) 2054 02/19/2010, 03/15/2006 [facility]-HIB Vaccines Completed 03/15/2006, , 03/26/2005, Additional history exists [facility]-Hepatitis B Vaccines Completed 006, 08/05/2005, 01/04/2005 [facility]-IPV Vaccines Completed 01/24/2009, , 01/04/2005 [facility]-Hepatitis A Vaccines Completed 02/19/2010, 08/2008 [facility]-Varicella Vaccines Completed 02/19/2010, 2005 [facility]-Pneumococcal Vaccine: Pediatrics (0 to 5 Years) and At-Risk Patients (6 to 49 Years) Aged Out No longer eligible based on patient's age to complete this topic [facility]-Rotavirus Vaccines Aged Out No lo nger eligible based on patient's age to complete this topic Procedures Procedure Name Priority Date/Time Associated Diagnosis Comments POCT , URINE Routine 05/10/2025 10:12 AM EST Healthcare maintenance from Last 3 Months Results * POCT Urine (05/10/2025 10:12 AM [...] CARE TEST ENTER/ EDIT ORDERABLES Final Result from Last 3 Months Insurance MEDICAID Care Teams Nutrition Partner Relationship Specialty Start Date End Date Beltran Payton MD [facility] [id number] PCP - General Internal Medicine 05/10/25
--- OUTSIDE RECORDS SUMMARY | 2025-05-20 11:06 | XMS_ITS | Encounter Summary ---
Author Organization [facility] Address [address] [place] [address] Care Team Providers Care Vba Developer Name Role Phone Provider, No Known Primary Care Provider Unavail able Reason for Visit * Reason Onset Date Comments No Show 04/29/2025 Encounter Details Date Type Department Care Team ([facility] st Contact Info) Description 04/29/2025 Telephone [facility] [address] [address] [place] [address] Clover Núñez MD [address] [facility] [address] [place] [address] No Show Social History Tobacco Use Types Packs/Day Years Used Date Smoking Tobacco: Never Assessed Comments Unknown Sex and Gender Information Value Date Recorded Sex Assigned at Not on file Legal Sex Female 11:47 AM EST Gender Identity Not on file Sexual Orientation Not on file documented as of this encounter Miscellaneous Notes * Telephone Encounter - Malissa Mckeon RegSched Rep - 04/29/2025 8:33 AM EST Caller: SIMÓN MORENO Best call back number: [phone] PATIENT CALLED REQUESTING TO CANCEL SAME DAY APPT. Did the patient call AFTER the start time of their scheduled appointment? [x]YES []NO Was the patient's appointment rescheduled? []YES [x]NO Any additional information: PT SAID SHE WOULD CALL BACK TO RESCHEDULE documented in this encounter Plan of Treatment Not on file documented as of this encounter Visit Diagnoses Not on filedocumented in this encounter Care Teams Vba Developer Relationship Specialty Start Date End Date Provider, [place] [address] PCP - General 04/23/25 documented as of this encounter
--- OUTSIDE RECORDS SUMMARY | 2025-05-20 11:06 | XMS_ITS | Encounter Summary ---
Author Organization Healthcare Address [address] [place] [address] Care Team Providers Care Gas Singer Name Role Phone Unavailable Primary Care Provider Unavailabl e Reason for Visit * Reason Onset Date Comments CLIENT LEADER: Care Coordination 04/26/2025 Reques t for an Appointment - See Note Encounter Details Date Type Department Care Team ([facility] st Contact Info) Description 04/26/2025 Telephone Medical Office Building Obstetrics and Gynecology [address] [facility] [address] [facility], [address] [place] [address] Ivett Valerio, RN [facility] None CLIENT LEADER: Care Coordination (Request for an Appointment - See Note) Social History Tobacco Use Types Packs/Day Years Used Date Smoking Tobacco: Never Assessed Comments Unknown Sex and Gender Information Value Date Recorded Sex Assigned at Not on file Legal Sex Female 10:57 AM EST Gender Identity Not on file Sexual Orientation Not on file documented as of this encounter Miscellaneous Notes * Telephone Encounter - Ivett Valerio RN - 04/29/2025 3:13 PM EST Spoke to the patient via phone. Per patient report, she is a 19yo . History includes uncomplicated @ 37.5 weeks (G1 - 2021) and SAB @ 6.1 weeks (G2 - 02/2025). 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 Patient denies bleeding or pain. C/o occasional cramping. Was prescribed OCPs and was instructed to skip the placebo week with each pack.The patient is seeking a second opinion. Requested she have her records faxed to the office @ . Appointment made with Dr. Lugo on 05/10/2025 @ 0915. Message sent to the requested number for the patient to sign-up for Bizo access. She was encouraged to call back with questions leading up to her scheduled visit. * Telephone Encounter - Ivett Valerio RN - 04/26/2025 2:32 PM EST Message received requesting an appointment. See below: Pt partner states had a miscarriage 7 weeks ago, states she vascular malfacatry in her uterus. Requesting ANDRAE from [facility] Attempt to call the patient to discuss this request further was unsuccessful. No Answer. Voicemail left requesting the patient call back @ her convenience. Unable to follow-up with a Bizo message because it has not yet been set-up. documented in this encounter Plan of Treatment Not on file documented as of this encounter Visit Diagnoses Not on filedocumented in this encounter
--- OUTSIDE RECORDS SUMMARY | 2025-05-20 11:06 | XMS_ITS | Clinical Summary ---
Author Organization [facility] Address [address] [place] [address] Care Team Providers Care Sea Kayaking Guide Name Role Phone Provider, No Known Primary Care Provider Unavail able Encounters Date Type Department Care Team Description 04/29/2025 Telephone [facility] OBGYN [address] [facility] [address] [place] [id number] Clover Núñez MD No Show 04/23/2025 Travel from Last 3 Months Social History Tobacco Use Types Packs/Day Years Used Date Smoking Tobacco: Never Assessed Comments Unknown Sex and Gender Information Value Date Recorded Sex Assigned at Not on file Legal Sex Female 11:47 AM EST Gender Identity Not on file Sexual Orientation Not on file Plan of Treatment Health Maintenance Due Date Last Done Comments HPV VACCINES (1 - 3-dose series) 11/05/2019 MENINGOCOCCAL B VACCINE (1 o f 2 - Standard) 2020 TDAP/TD VACCINES (1 - Tdap) 11/05/2023 INFLUENZA VACCINE 12/21/2024 ANNUAL PHYSICAL 04/29/2025 HEPATITIS C SCREENING 04/29/2025 MENINGOCOCCAL VACCINE Aged Out No alejandro sukumar eligible based on patient's age to complete this topic Pneumococcal Vaccine 0-49 Aged Out No longer eligible based on patient's age to complete this topic Insurance [facility] [facility] Care Teams Sea Kayaking Guide Relationship Specialty Start Date End Date Provider, [place] [address] PCP - General 04/23/25
--- OUTSIDE RECORDS SUMMARY | 2025-05-20 11:06 | XMS_ITS | Encounter Summary ---
Author Organization [facility] Address [address] [place] [address] Care Team Providers Care Harpooner Name Role Phone Beltran Payton MD Primary Care Provider [phone] Encounter Details Date Type Department Care Team ([facility] Contact Info) Description 05/13/2025 Telephone Medical Office Building Obstetrics and Gynecology [address] [address] [facility], [address] [place] [address] Ev Lugo MD [address] [place] [address] Social History Tobacco Use Types Packs/Day Years Used Date Smoking Tobacco: Never Passive Smoke Exposure: Never Smokeless Tobacco: Current Alcohol Use Standard Drinks/Week Comments Never 0 [...] encounter Miscellaneous Notes * Telephone Encounter - Ev Lugo MD - 05/13/2025 8:16 AM EST Called to discuss review of Dr. Margarito Jones's records. 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 She reports since her visit with us Tuesday she hashad some light bleeding, less than a period. She does not yet have follow-up with Dr. Jones, but Idiscussed repeat ultrasound 2 weeks from last which would be sometime in late April or early May. We reviewed bleeding ED precautions. She will call his office to schedule. She will call our office if she decides to follow-up with us. Ev Lugo MD documented in this encounter Plan of Treatment Not on file documented as of this encounter Visit Diagnoses Not on filedocumented in this encounter Additional Health Concerns Assessment Noted Time PHQ-9 Depression Total Score: 7 05/10/20 9:32 AM EST A Body Mass Index follow-up plan has been documented for the patient 05/12/2025 11:16 AM EST documented as of this encounter Care Teams Harpooner Relationship Specialty Start Date End Date Beltran Payton MD [facility] [phone] PCP - General Internal Medicine 05/10/25 documented as of this encounter
--- OUTSIDE RECORDS SUMMARY | 2025-05-20 11:06 | XMS_ITS | Encounter Summary ---
Author Organization Healthcare Address [address] [place] [address] Care Team Providers Care Wireless Sales Associate Name Role Phone Beltran Payton MD Primary Care Provider Encounter Details Date Type Department Care Team (Latest Contact Info) Description 05/10/2025 Travel Social History Tobacco Use Types Packs/Day [...] on file documented as of this encounter Functional Status * Communicable Disease Screening Question Answer Date of Assessment Author Have you been in contact wit h someone who was sick? No / Unsure 05/10/2025 9:10 AM Ariadne Saavedra Do you have any of the follo wing new or worsening symptoms? None of these 05/10/2025 9:10 AM Amalia Saavedra * Travel Screening Question Answer Date of Assessment Author Have you traveled internatio santosh or domestically in the last month? No 05/10/2025 9:10 AM Ariadne Saavedra documented as of this encounter Mental Status * Communicable Disease Screening Question Answer Entry Date Author Have you been in contact wit h someone who was sick? No / Unsure 05/10/2025 9:10 AM Ariadne Saavedra Do you have any of the follo wing new or worsening symptoms? None of these 05/10/2025 9:10 AM Amalia Saavedra J * Travel Screening Question Answer Entry Date Author Have you traveled internatio santosh or domestically in the last month? No 05/10/2025 9:10 AM Ariadne Saavedra documented in this encounter Plan of Treatment Not on file documented as of this encounter Visit Diagnoses Not on filedocumented in this encounter Additional Health Concerns Assessment Noted Time PHQ-9 Depression Total Score: 7 05/10/20 9:32 AM EST A Body Mass Index follow-up plan has been documented for the patient 05/12/2025 11:16 AM EST documented as of this encounter Care Teams Wireless Sales Associate Relationship Specialty Start Date End Date Beltran Payton MD [facility] [phone] PCP - General Internal Medicine 05/10/25 documented as of this encounter
== END 2025-05-20 23:59 | disposition home or self-care (01) ==
LOC: RAD 11:04
PROVIDERS: PCP Internal Medicine Adolescent Medicine; Visit Provider Nurse Practitioner Obstetrics & Gynecology
DX: N85.4 Malposition of uterus (principal); N93.9 Abnormal uterine and vaginal bleeding, unspecified; R93.89 Abnormal findings on diagnostic imaging of other specified body structures
CPT/HCPCS: 76830